=== PATIENT | female | born 1955 | race Two or more races ===

== ENCOUNTER 2018-02-18 19:25 | Observation (INO) | payer OTHER ==
--- NOTE | 2018-02-18 19:53 | PDOC ---
Rapid Medical Evaluation Time Seen by Provider: 02/18/18 19:44
--- NOTE | 2018-02-18 19:56 | PDOC ---
Rapid Medical Evaluation Chief Complaint: CVA/TIA Time Seen by Provider: 02/18/18 19:44 Medical Evaluation: Allergies Allergy/AdvReac Type Severity Reaction Status Date / Time No Known Allergies Allergy Verified 02/18/18 19:47 Vital Signs Temp Pulse Resp BP Pulse Ox 98.1 F 66 20 143/70 100 02/18/18 19:47 02/18/18 19:47 02/18/18 19:47 02/18/18 19:47 02/18/18 19:47 02/18/18 19:55 I have performed a brief in-person evaluation of this patient. The patient presents with a chief complaint of: acute onset this afternoon at lunch ~ 13:00 of dizziness/ and numbness to tongue/ lips and fingers that has persisted since . States does not feel well. No Hx CVA/ , fevers, cough, CP. Pertinent physical exam findings: pale but alert with no obv neuro changes. I have ordered the following: CThead. The patient will proceed to the ED for further evaluation. 02/18/18 19:57
--- NOTE | 2018-02-18 20:19 | PDOC ---
History of Present Illness - History of Present Illness Initial Comments: 02/18/18 20:19 Ms. Jordan is a 62 yo female w/ pmh of Asthma and pre-DM who presents for evaluation of sudden onset numbness to her hands, tongue and lower lips starting at 1pm today. Patient reports she had concurrent dizziness with this and that her vision became blurry. This all lasted for about an hour before the vision and blurriness resolved. She now feels only the lip and hand tingling. Patient reports she also has concurrent headache that she describes as being in the front and back of her head. Patient has no other complaints at this time. The patient denies chest pain and shortness of breath. Denies fever, chills, nausea, vomit, diarrhea and constipation. Denies dysuria, frequency, urgency and hematuria. Allergies: NKDA <Everardo Rodriguez - Last Filed: 02/18/18 21:45> <Slime Miller - Last Filed: 02/18/18 22:34> - General Chief Complaint: CVA/TIA Stated Complaint: TOOTHACHE Time Seen by Provider: 02/18/18 19:44 Past History - Past Medical History Asthma: Yes Cancer: No Cardiac Disorders: No CVA: No COPD: No CHF: No DVT: No Diabetes: Yes ("Pre diabetes") - Surgical History Cardiac Surgery: No Cholecystectomy: No Gastric Stapling: No GI Surgery: No Lung Surgery: No - Suicide/Smoking/Psychosocial Hx Smoking History: Never smoked Information on smoking cessation initiated: No Hx Alcohol Use: No Drug/Substance Use Hx: No <Everardo Rodriguez - Last Filed: 02/18/18 21:45> <Slime Miller - Last Filed: 02/18/18 22:34> - Past Medical History Allergies/Adverse Reactions: Allergies Allergy/AdvReac Type Severity Reaction Status Date / Time No Known Allergies Allergy Verified 02/18/18 19:47 Review of Systems - Review of Systems Comments:: 02/18/18 20:40 GENERAL/CONSTITUTIONAL: No fever or chills. No weakness. HEAD, EYES, EARS, NOSE AND THROAT: +Earlier blurry vision as described. No ear pain or discharge. No sore throat. CARDIOVASCULAR: No chest pain or shortness of breath RESPIRATORY: No cough, wheezing, or hemoptysis. GASTROINTESTINAL: No nausea, vomiting, diarrhea or constipation. GENITOURINARY: No dysuria, frequency, or change in urination. MUSCULOSKELETAL: No joint or muscle swelling or pain. No neck or back pain. SKIN: No rash NEUROLOGIC: +Neurological symptoms w/ headache as described. Dizziness and blurry vision resolved. Lip and tongue tingling remains. ENDOCRINE: No increased thirst. No abnormal weight change HEMATOLOGIC/LYMPHATIC: No anemia, easy bleeding, or history of blood clots. ALLERGIC/IMMUNOLOGIC: No hives or skin allergy. <Everardo Rodriguez - Last Filed: 02/18/18 21:45> *Physical Exam - Vital Signs Last Vital Signs Temp Pulse Resp BP Pulse Ox 98.1 F 66 20 143/70 100 02/18/18 19:47 02/18/18 19:47 02/18/18 19:47 02/18/18 19:47 02/18/18 19:47 - Physical Exam Comments: 02/18/18 20:41 GENERAL: Awake, alert, and fully oriented, in no acute distress HEAD: No signs of trauma, normocephalic, atraumatic EYES: PERRLA, EOMI, sclera anicteric, conjunctiva clear ENT: Auricles normal inspection, hearing grossly normal, nares patent, oropharynx clear without exudates. Moist mucosa NECK: Normal ROM, supple, no lymphadenopathy, JVD, or masses LUNGS: No distress, speaks full sentences, clear to auscultation bilaterally HEART: Regular rate and rhythm, normal S1 and S2, no murmurs, rubs or gallops, peripheral pulses normal and equal bilaterally. ABDOMEN: Soft, nontender, normoactive bowel sounds. No guarding, no rebound. No masses EXTREMITIES: Normal inspection, Normal range of motion, no edema. No clubbing or cyanosis. NEUROLOGICAL: Cranial nerves II through XII grossly intact. Normal speech, normal gait, no focal sensorimotor deficits SKIN: Warm, Dry, normal turgor, no rashes or lesions noted. <Everardo Rodriguez - Last Filed: 02/18/18 21:45> - Vital Signs Last Vital Signs Temp Pulse Resp BP Pulse Ox 98.1 F 66 20 143/70 100 02/18/18 19:47 02/18/18 19:47 02/18/18 19:47 02/18/18 19:47 02/18/18 19:47 <Slime Miller - Last Filed: 02/18/18 22:34> NIH Stroke Scale - Last Known Well Date/Time & Onset Date Last Known Well: 02/18/18 Time Last Known Well: 13:00 - Initial Evaluation Level of consciousness: Alert Ask patient the month and their age: Answers both correctly Ask patient to open & close eyes; make fist and let go: Obeys both correctly Best gaze (horizontal eye movement): Normal Visual field testing: No visual field loss Facial paresis (Show teeth/raise eyebrows/close eyes tight): Normal symmetrical movement Motor Function: Left Arm: Normal Motor Function: Right Arm: Normal (extends arm 90 (or 45) degrees for 10 seconds without drift Motor Function: Left Leg: Normal (extends leg 30 degrees for 5 seconds without drift) Motor Function: Right Leg: Normal (extends leg 30 degrees for 5 seconds without drift) Limb Ataxia: No ataxia Sensory(Use pinprick test arms,legs,trunk,face/side to side): Mild to moderate decrease in sensation Best language (Describe picture, name items, read sentences): No Aphasia Dysarthria (read several words): Normal articulation Extinction and Inattention: No abnormality - Total Score NIH Stroke Scale Score: 1 <Everardo Rodriguez - Last Filed: 02/18/18 21:45> tPA Exclusion checklist 3-4.5h - Time Elapsed Date last known well: 02/18/18 Time last known well: 13:00 Elaspsed time: Day(s) and 8 Hour(s) and 45 Minutes - Thrombolytic Therapy Candidate Is patient eligible for thrombolytic therapy: No - Exclusion Criteria 3-4.5 hr SBP greater than 185 or DBP greater than 110mmHg despite tx: No Recent IC/spinal surgery,head trauma or stroke<3mos.: No Hx IC hemorrhage, IC neoplasm, AV malformation or aneurysm: No Active internal bleeding: No Blding diathesis(low plt ct, inc PTT,INR>1.7 or use of NOAC): No Symptoms suggest subarachnoid hemorrhage: No CT demonstrates multilobar infarct(>1/3 cerebral hemiphere): No Arterial puncture at noncompressible site in previous 7 days: No Blood glucose concentration less than 50mg/dL (2.7mmol/L): No - Relative Exclusion Criteria 3-4.5 hr Life expectancy <1 yr or severe co-morbid illness: No : No Patient/family refused: No Rapid improvement: No Stroke severity too mild: Yes Recent acute VA (w/in previous 3 months): No Seizure at onset with postictal residual neuro impairments: No Major surgery or serious trauma w/in previous 14 days: No Recent GI or hemorrhage (w/in previous 21 days): No - Add'l Relative Exclusion 3-4.5 hr Age > 80: No Hx of both diabetes AND prior ischemic stroke: No Taking an oral anticoagulant regardless of INR: No NIHSS >25: No - Ineligibility reason(s) Reasons No tPA given: Outside of window - delayed arrival <Everardo Rodriguez - Last Filed: 02/18/18 21:45> Critical Care Time/[facility] Note - Medical Decision Making Note: 02/18/18 21:01 Ms. Jordan is a 62 yo female w/ [facility] as described who presents for evaluation of symptoms concerning for CVA event. Patient worked up accordingly with labs as below, Head CT, CXR, EKG. Patient NIHSS 1. Discussed patient w/ Dr. Zimmerman ( Neurology) - given low severity, NIHSS 1, and delayed presentation will withhold TPA; will admit patient for further neurological workup. 02/18/18 21:43 Patient resting comfortably. Labs grossly wnl as below. Admitting patient to hospitalist. Laboratory Results - last 24 hr 02/18/18 02/18/18 02/18/18 20:40 20:40 20:40 WBC 6.0 RBC 4.60 Hgb 13.8 Hct 41.0 MCV 89.1 MCH 30.0 MCHC 33.6 RDW 14.1 Plt Count 205 MPV 7.2 L Absolute Neuts (auto) 3.9 Neutrophils % 63.8 Lymphocytes % 30.2 Monocytes % 4.9 Eosinophils % 0.6 Basophils % 0.5 Nucleated RBC % 0 PT with INR 11.80 INR 1.00 PTT (Actin FS) Sodium 136 Potassium 4.4 Chloride 103 Carbon Dioxide 24 Anion Gap 9 BUN 19 H Creatinine 0.7 Creat Clearance w eGFR > 60 Random Glucose 121 H Calcium 9.1 Total Bilirubin 0.5 AST 26 ALT 64 H Alkaline Phosphatase 111 Creatine Kinase 206 H Creatine Kinase Index 0.7 CK-MB (CK-2) 1.6 Troponin I < 0.02 Total Protein 8.0 Albumin 4.3 Triglycerides 153 H Cholesterol 183 Total LDL Cholesterol 113 H HDL Cholesterol 44 Urine Color Urine Appearance Urine pH Ur Specific [place] Urine Protein Urine Glucose (UA) Urine Ketones Urine Blood Urine Nitrite Urine Bilirubin Urine Urobilinogen Ur Leukocyte Esterase 02/18/18 02/18/18 20:40 20:59 WBC RBC Hgb Hct MCV MCH MCHC RDW Plt Count MPV Absolute Neuts (auto) Neutrophils % Lymphocytes % Monocytes % Eosinophils % Basophils % Nucleated RBC % PT with INR INR PTT (Actin FS) 26.5 Sodium Potassium Chloride Carbon Dioxide Anion Gap BUN Creatinine Creat Clearance w eGFR Random Glucose Calcium Total Bilirubin AST ALT Alkaline Phosphatase Creatine Kinase Creatine Kinase Index CK-MB (CK-2) Troponin I Total Protein Albumin Triglycerides Cholesterol Total LDL Cholesterol HDL Cholesterol Urine Color Straw Urine Appearance Clear Urine pH 7.0 Ur Specific [place] 1.004 L Urine Protein Negative Urine Glucose (UA) Negative Urine Ketones Negative Urine Blood 1+ H Urine Nitrite Negative Urine Bilirubin Negative Urine Urobilinogen Negative Ur Leukocyte Esterase Negative <Everardo Rodriguez - Last Filed: 02/18/18 21:45> *DC/Admit/Observation/Transfer - Discharge Dispostion Decision to Admit order: Yes <Everardo Rodriguez - Last Filed: 02/18/18 21:45> - Discharge Dispostion Decision to Admit order: Yes Decision to Admit order Date/Time: 02/18/18 22:33 02/18/18 22:33 <Slime Miller - Last Filed: 02/18/18 22:34> Diagnosis at time of Disposition: Facial paresthesia - Discharge Dispostion Condition at time of disposition: Fair - Referrals Referrals: Shanae Bustamante MD [Primary Care Provider] - - Patient Instructions - Post Discharge Activity
[2018-02-18 21:00] LABS: BASO % 0.5 % (0-2.0); EOS % 0.6 % (0-4.5); HEMOGLOBIN 13.8 GM/dL (10.7-15.3); LYMPH % 30.2 % (8-40); MCHC 33.6 g/dl (32.0-36.0); MEAN CELL VOLUME 89.1 fl (80-96); MEAN PLT VOLUME 7.2 fl (7.5-11.1); MONO % 4.9 % (3.8-10.2); NEUT % 63.8 % (42.8-82.8); PLATELET COUNT 205 K/MM3 (134-434); RDW 14.1 % (11.6-15.6)
[2018-02-18] MEDS ORDERED: ASPIRIN 81 MG CHEWABLE TABLETS PO ONE (21:00)
[2018-02-18 21:06] LABS: PROTHROMBIN TIME (PATIENT) 11.8 SEC (9.7-13.0)
[2018-02-18 21:18] LABS: ALBUMIN 4.3 g/dl (3.4-5.0); ALK PHOS 111 U/L (45-117); ANION GAP 9 MMOL/L (8-16); BILIRUBIN,TOTAL 0.5 mg/dL (0.2-1); BLOOD UREA NITROGEN 19 mg/dL (7-18); CALCIUM 9.1 mg/dL (8.5-10.1); CHLORIDE 103 mmol/L (98-107); CHOLESTEROL 183 mg/dL (50-200); CO2 24 mmol/L (21-32); CREATININE 0.7 mg/dL (0.55-1.3); GLUCOSE,RANDOM 121 mg/dL (74-106); HDL CHOLESTEROL 44 mg/dL (40-60); POTASSIUM 4.4 mmol/L (3.5-5.1); SGOT/AST 26 U/L (15-37); SGPT/ALT 64 U/L (13-61); SODIUM 136 mmol/L (136-145); TRIGLYCERIDES 153 mg/dL (0-150)
[2018-02-18 21:31] LABS: URINE APPEARANCE CLEAR; URINE BILIRUBIN NEGATIVE (<2.0 mg/dL); URINE COLOR STRAW; URINE GLUCOSE (UA) NEGATIVE (NEGATIVE); URINE KETONE NEGATIVE (NEGATIVE); URINE LEUK ESTERASE NEGATIVE (NEGATIVE); URINE NITRITE NEGATIVE (NEGATIVE); URINE PROTEIN NEGATIVE (NEGATIVE); URINE UROBILINOGEN NEGATIVE mg/dL (0.2-1.0)
[2018-02-18] MEDS ORDERED: ASPIRIN 81 MG CHEWABLE TABLETS ONE (21:46)
[2018-02-18] MEDS: SODIUM CHLORIDE 1,000 ML IV SCH (21:53)
--- NOTE | 2018-02-18 22:29 | PDOC ---
Attending Attestation - Resident Resident Name: Everardo Rodriguez - HPI HPI: 02/18/18 22:24 The patient is a 62 year old female with a significant past medical history of Asthma and pre-DM who presents for evaluation of sudden onset numbness to her tongue and lower lips starting at 1pm today. She reports associated dizziness and blurred vision which lasted about an hour before resolving. She denies the dizziness and visual changes now. She states she feels only the lip and bilateral hands tingling. She also reports a diffuse headache at this time. The patient denies chest pain and shortness of breath. Denies fever, chills, nausea, vomit, diarrhea and constipation. Denies dysuria, frequency, urgency and hematuria. Allergies: NKDA PCP: Dr. Salvatore Issa - Physicial Exam PE: 02/18/18 22:25 NAD, well appearing, PERRL, EOMI, MMM, nl conjunctiva, anicteric; neck supple. lungs clear, RRR, abdomen soft nontender. SARABIA x4, CN II-XII grossly intact. 5/5 strength in all extrem, SILT. No peripheral edema. normal color for ethnicity, WWP. - Medical Decision Making 02/18/18 22:25 Vital signs reviewed, wnl. Prior notes reviewed, including admissions, discharges and consultations. laboratory results and imaging reviewed, basic labs and lytes wnl, notable for elevated LDL and mildly abnormal lipid panel. UA_wnl, no infection, glc or protein. small blood, unclear CXR_clear, no acute pathology Cardiac panel_trop neg, reassuring. EKG normal sinus rhythm, no interval abnormalities, narrow QRS, ST and T wave segments and morphology normal. ED course: no acute events, remained stable and well appearing. Out of window for tpa, last normal/time of onset at 1pm. NIHSS 1 for the mild paresthesia; otherwise no focal neuro deficits. CT head grossly normal will warrant inpatient MRI/MRA, formal echo Dr. Zimmerman was called at 20:58 and the patients case was discussed with Dr. Rodriguez Dispo: Admit for stroke workup, +facial and tongue paresthesias. Discussed results and management plan with pt and family member at bedside, agree with impression and plan 02/18/18 22:29 Heart Score/ECG Review - ECG Impressions Normal ECG: Yes Comment:: 10/31/18 22:28 EKG normal sinus rhythm, no interval abnormalities, narrow QRS, ST and T wave segments and morphology normal. NIH Stroke Scale - Last Known Well Date/Time & Onset Date Last Known Well: 02/18/18 Time Last Known Well: 13:00 - Initial Evaluation Level of consciousness: Alert Ask patient the month and their age: Answers both correctly Ask patient to open & close eyes; make fist and let go: Obeys both correctly Best gaze (horizontal eye movement): Normal Visual field testing: No visual field loss Facial paresis (Show teeth/raise eyebrows/close eyes tight): Normal symmetrical movement Motor Function: Left Arm: Normal Motor Function: Right Arm: Normal (extends arm 90 (or 45) degrees for 10 seconds without drift Motor Function: Left Leg: Normal (extends leg 30 degrees for 5 seconds without drift) Motor Function: Right Leg: Normal (extends leg 30 degrees for 5 seconds without drift) Limb Ataxia: No ataxia Sensory(Use pinprick test arms,legs,trunk,face/side to side): Mild to moderate decrease in sensation Best language (Describe picture, name items, read sentences): No Aphasia Dysarthria (read several words): Normal articulation Extinction and Inattention: No abnormality - Total Score NIH Stroke Scale Score: 1
[2018-02-18] MEDS ORDERED: ACETAMINOPHEN 325 MG TABLET (FP) PO PRN (23:38)
--- NOTE | 2018-02-18 23:39 | HP ---
CHIEF COMPLAINT: numbness, tingling around lower lip and finger tips PCP: HISTORY OF PRESENT ILLNESS: Patient is a 62 y/o female with a history of asthma and pre diabetes who presents for numbness and tingling at lower lip, tounge, and fingertips. She also reports feeling dizzy and with a headache. She reports this as the first time she has ever had these feelings and the began at about 1 pm today. She reports they resolved at around 4 pm today. She described the feeling that the room was spinning. She did not take any medication. Patient has no history of stroke and no family history of stroke. Patients reports she also has low back, cva tenderness. She reports she has pain upon initiation of urination without any discharge or blood. She was diagnosed with a UTI by [facility] and took her first does of nitrofurintoin yesterday. Patient also complains of bilateral lower extremity burning and pain through the day. ED was concerned for a stroke and had a head CT done. NIHS scale 1. Patient currently reports her symptoms have resolved and she only complains of the low back pain. ER course was notable for: (1) (2) (3) Recent Travel: PAST MEDICAL HISTORY: asthma, pre diabetes PAST SURGICAL HISTORY: Social History: Smoking: denies Alcohol: denies Drugs: Family History: Allergies No Known Allergies Allergy (Verified 02/18/18 19:47) HOME MEDICATIONS: Home Medications Medication Instructions Recorded Acetaminophen [Mapap] 1,000 mg PO BID 02/18/18 Montelukast Na [Singulair -] 10 mg PO HS 02/18/18 Nitrofurantoin Macrocrystal 100 mg PO BID 02/18/18 [Nitrofurantoin] REVIEW OF SYSTEMS CONSTITUTIONAL: Absent: fever, chills, diaphoresis, generalized weakness, malaise, loss of appetite, weight change HEENT: Absent: rhinorrhea, nasal congestion, throat pain, throat swelling, difficulty swallowing, mouth swelling, ear pain, eye pain, visual changes CARDIOVASCULAR: Absent: chest pain, syncope, palpitations, irregular heart rate, lightheadedness , peripheral edema RESPIRATORY: Absent: cough, shortness of breath, dyspnea with exertion, orthopnea, wheezing, stridor, hemoptysis GASTROINTESTINAL: Absent: abdominal pain, abdominal distension, nausea, vomiting, diarrhea, constipation, melena, hematochezia GENITOURINARY: Absent: dysuria, frequency, urgency, hesitancy, hematuria, flank pain, genital pain MUSCULOSKELETAL: back pain Absent: myalgia, arthralgia, joint swelling, neck pain SKIN: Absent: rash, itching, pallor HEMATOLOGIC/IMMUNOLOGIC: Absent: easy bleeding, easy bruising, lymphadenopathy, frequent infections ENDOCRINE: Absent: unexplained weight gain, unexplained weight loss, heat intolerance, cold intolerance NEUROLOGIC: Absent: headache, focal weakness or paresthesias, dizziness, unsteady gait, seizure, mental status changes, bladder or bowel incontinence PSYCHIATRIC: Absent: anxiety, depression, suicidal or homicidal ideation, hallucinations. PHYSICAL EXAMINATION Vital Signs - 24 hr 02/18/18 02/18/18 19:47 23:34 Temperature 98.1 F Pulse Rate 66 Pulse Rate [ 55 L Right] Respiratory 20 16 Rate Blood Pressure 143/70 Blood Pressure 102/72 [Right Arm] O2 Sat by Pulse 100 98 Oximetry (%) GENERAL: Awake, alert, and fully oriented, in no acute distress. HEAD: Normal with no signs of trauma. EYES: Pupils equal, round and reactive to light, extraocular movements intact, sclera anicteric, conjunctiva clear. No lid lag. EARS, NOSE, THROAT: Moist mucous membranes. NECK: Normal range of motion, supple without lymphadenopathy, JVD, or masses. LUNGS: Breath sounds equal, clear to auscultation bilaterally. No wheezes, and no crackles. No accessory muscle use. HEART: Regular rate and rhythm, normal S1 and S2 without murmur, rub or gallop. ABDOMEN: tenderness to RUQ palpation MUSCULOSKELETAL: CVA tenderness bilaterally, 5/5 strength RUE and LLE LOWER EXTREMITIES: 2+ pulses, warm, well-perfused. No calf tenderness. No peripheral edema. decreased sensations bilateral feet NEUROLOGICAL: Cranial nerves II-XII intact. Normal speech. Normal gait. Negative [place] exam PSYCHIATRIC: Cooperative. Good eye contact. Appropriate mood and affect. SKIN: Warm, dry, normal turgor, no rashes or lesions noted, normal capillary refill. Laboratory Results - last 24 hr CBC, BMP 02/18/18 20:40 02/18/18 20:40 ASSESSMENT/PLAN: Patient is a 62 y/o female with a history of asthma and pre diabetes who presents for numbness and tingling at lower lip, tounge, and fingertips. #tingling and dizziness, r/o TIA - CT negative for any acute pathology - ED discussed with Dr. Zimmerman - f/u Brain MRI in morning, discuss necessity of completing imaging for low suspicion TIA - f/u vitamin B12 - f/u echo - carotid doppler: no evidence of acute stenosis - continue aspirin 81 mg daily - monitor on tele obs - monitor neuro checks, and serial neuro exams #UTI, possibly pyelonephritis - ceftriaxone 1 gm daily - Ucx: e. coli - patient took two doses of nitrofuintoin previously #CVA tenderness, possible stones, r/o Renal artery stenosis - Renal ultrasound: right kidney has atrophy, no hydronephrosis bilaterally - f/u renal artery doppler - patient follows up with Dr. Kayleigh Grimaldo #diabetic nephropathy - Gabapentin 300 BID - f/u A1C - SS as needed #hyperlipidemia - atorvastatin 40 mg daily - cholesterol 183, triglycerides : 183 Visit type - Emergency Visit Emergency Visit: Yes ED Registration Date: 02/18/18 Care time: The patient presented to the Emergency Department on the above date and was hospitalized for further evaluation of their emergent condition. - New Patient This patient is new to me today: Yes Date on this admission: 02/19/18 - Critical Care Critical Care patient: No
[2018-02-19] MEDS ORDERED: SODIUM CHLORIDE 1,000 ML IV SCH (00:15)
--- NOTE | 2018-02-19 00:42 | PN ---
Teaching Attending Note Name of Resident: Sherlyn Abernathy ATTENDING PHYSICIAN STATEMENT I saw and evaluated the patient. I reviewed the resident's note and discussed the case with the resident. I agree with the resident's findings and plan as documented. SUBJECTIVE: Seen and examined with resident; please refer to resident note for additional historical information. In summation, this pt. is a 62 y/o HF with a PMH significant for HTN, pre-DM, HLD, current UTI currently being treated with nitrofurantoin. She presents to the ER with multiple complaints. These are 1) numbness/tingling in her lower lip and b/l symmetric hands with b/l symmetric feet decreased sensation since 1PM 2) Burning sensation in b/l LE, 3) b/l ' kidney pain' R>L, 4) blurry vision. She was ruled out for CVA in the ER. Neurology was contacted by the ER. She is a patient of Dr. Morin and he suspected YASMINE and she had planned imaging next week for it. She has been compliant with the nitrofurantoin; RIYA <32 but technically sensitive and Ucx growing E. Coli. Afebrile, no WBC, hemodynamically stable, UA negative today ( and was +LE and nitrite yesterday). She is noted to be hyperglycemic. We will admit her to the medicine service for further workup. Notably she is not complaining of any neuro complaints when we assess her. 10 sys ROS done and negative aside from HPI PMH and PSH per chart FH asked and noncontributory Social hx denies EtOH and tobacco abuse OBJECTIVE: VSS, labs reviewed, imaging reviewed NAD, resting in bed, AAO RRR s1/2 no mgr Lungs CTAB with sym expansion No rashes or skin breakdown CN2-12 grossly intact, no FND. Ambulates 50+ feet without difficulty. Speech fluid without any dysarthria noted. Normal mood, appropriate behavior NT ND +BS; b/l pain to fist percussion R>L Diminished fine touch symmetric on the b/l plantar surface of feet extending over the ankles in stocking-glove distribution. ASSESSMENT AND PLAN: Mrs. Luna is a 62 y/o HF with a PMH as stated who is presenting to the medicine service with a CC of numbness in face/feet/hands, flank pain. She has suspected YASMINE. Neurology was contacted by ER for suspected CVA; Dr. Zimmermna (Neurology), given low severity with NIHSS 1 and delayed presentation will withhold TPA; will admit patient for further neurological workup.. Monitoring the patient on medicine service; she is free of any neurological complaints. 1) Suspected CVA -Her neuro symptoms do not fit one specific area of the brain. Neurology declined to give tPA which is more than reasonable. The distribution is the b/ l hands, b/l LE, lip, tongue. Sx have improved. Other explanations for the sx would include peripheral neuropathy 2/2 DM, B12 deficiency, etc. The burning pain in the b/l LE is very suspicious for neuropathy, especially given the stocking-glove distributrion -Neurology input appreciated. Will monitor the patient on tele. Will check MRI in the AM. Checking carotid dopplers and echocardiogram. PT/OT/ST. No neuro deficits evident now. Monitor with neuro checks and serial neuro exams on the floor. -Does have risk factors for CVA so will staff counselor regarding reducing those. 2) B/L Flank Pain -Ddx includes pyelonephritis, renal stones. Should note Dr. Victor was planning to obtain an u/s with doppler to r/o YASMINE on her as an outpatient. -Will go ahead and obtain YASMINE study with color doppler which would also show any hydronephrosis or stigmata of stones. Of course this is not the most sensitive test for renal stones so if strong suspicion persists post- examination can check high res CT -In terms of pyelo, she has no white count, no fever, HR and BP completely normal, negative UA today (only +nitrite/LE without epithelial cells, WBC, etc yesterday). She was on nitrofurantoin. Will change her to IV ceftriaxone as RIYA is much better with this and monitor for improvement. Monitor for sx improvement. 3) Stated prediabetes -Glucose 120s; low dose SSI when inpatient and check A1c -Workup for diabetic neuropathy and close followup with PCP 4) HLD -LDL 120s, TG 150s. -Atorva 40 QD, followup with PCP 5) Possible neuropathy -Given the odd distribution, etc. would be suspicious for neuropathy. Checking A1c, B12, TSH. -Start gabapentin empirically at low dose to see if any help -Given that the lip sx, etc. started at 1PM would be reasonable to consider if nitrofurantoin side effect 6) History of Asthma -No acute exacerbation -Monitor; continue home meds. Ensure on inhaled steroid at discharge 7) Acute Cystitis -Please see discussion in #2 -Changed nitro to ceftriaxone; Ecoli on UCx done prior with appropriate sensitivities to this drug. Full Code FENA -LR@75/hr -monitor/replace PRN -NPO until swallow eval then DM diet (DC fluids when eating) -As tolerated; consulted PT/OT due to #1 issue
[2018-02-19] MEDS ORDERED: ALBUTEROL SO4 0.083% IH SOL 2.5 MG/3 ML VIAL.NEB. NEB PRN (02:12)
[2018-02-19] MEDS ORDERED: GABAPENTIN 300 MG CAPSULE (FP) PO SCH ×2 (06:00→10:00)
[2018-02-19] MEDS: INSULIN SLIDING SCALE (NOVOLOG) 1 VIAL SQ SCH ×2 (06:04→11:57)
[2018-02-19 07:55] VITALS: BP 121/75; PULSE 82; TEMP 97.7; BMI 29.7
[2018-02-19] MEDS: SODIUM CHLORIDE 1,000 ML IV SCH (08:22)
[2018-02-19 08:51] LABS: HEMATOCRIT 40.8 % (32.4-45.2); HEMOGLOBIN 13.7 GM/dL (10.7-15.3); MCH 29.8 pg (25.7-33.7); MCHC 33.6 g/dl (32.0-36.0); MEAN CELL VOLUME 88.7 fl (80-96); MEAN PLT VOLUME 7.8 fl (7.5-11.1); PLATELET COUNT 192 K/MM3 (134-434); WHITE BLOOD COUNT 6.2 K/mm3 (4.0-10.0)
--- NOTE | 2018-02-19 09:02 | PN ---
Progress Note (short form) - Note Progress Note: CC Tingling of lower lip, tongue , finger tip, which is resolved HPI 62 year old female, hisotry of Prediabetes, Asthma. She has hsitory of tingling of lower lip, tongue and has initial ct head and it was normal. Her symptoms are resolved. She is not taking any aspirin or statin at home. Her blood pressure was normal, she do not have any weakness, dysarthria or diplopia. At admission her NIHSS was 1 and now zero PAST MEDICAL HISTORY: asthma, pre diabetes Social Hx, ROS, Family History reviewed in chart No Known Allergies Allergy (Verified 02/18/18 19:47) HOME MEDICATIONS: Home Medications Medication Instructions Recorded Acetaminophen [Mapap] 1,000 mg PO BID 02/18/18 Montelukast Na [Singulair -] 10 mg PO HS 02/18/18 Nitrofurantoin Macrocrystal 100 mg PO BID 02/18/18 [Nitrofurantoin] Neurological Examination Alert oriented x 3, speech is normal, able to repeat CN: EOMI, pupils reactive no face asymmetry Motor 5/5 all ext sensation is normal ct head is normal Assessment/Plan POSSIBLE TIA, Her ABCD score is low, risk factor is prediabetes. Plan: suggest to continue aspirin and statin and would review need for terminal manager as outpatient - stroke work up , carotid ultrasound is noraml, mri of brain is pending - she can be discharged once mri of brain is normal -I would see her outpatient Thanking You so much Noé Zimmerman MD
[2018-02-19 09:13] LABS: ALBUMIN 3.8 g/dl (3.4-5.0); ALK PHOS 91 U/L (45-117); ANION GAP 7 MMOL/L (8-16); BILIRUBIN,TOTAL 0.6 mg/dL (0.2-1); BLOOD UREA NITROGEN 13 mg/dL (7-18); CALCIUM 8.7 mg/dL (8.5-10.1); CHLORIDE 106 mmol/L (98-107); CO2 25 mmol/L (21-32); CREATININE 0.6 mg/dL (0.55-1.3); GLUCOSE,RANDOM 89 mg/dL (74-106); POTASSIUM 4.4 mmol/L (3.5-5.1); SGOT/AST 22 U/L (15-37); SGPT/ALT 54 U/L (13-61); SODIUM 138 mmol/L (136-145); TOT PROT 7.2 g/dl (6.4-8.2)
[2018-02-19] MEDS ORDERED: cefTRIAXone SODIUM 1 GM VIAL ONE (09:27)
[2018-02-19] MEDS ORDERED: DEXTROSE 5%-WATER - 50 ML IVPB ONE (09:28)
[2018-02-19] MEDS ORDERED: ASPIRIN 81 MG CHEWABLE TABLETS PO SCH (10:00)
[2018-02-19] MEDS ORDERED: CEFTRIAXONE 1 GM in DEXTROSE 5%-WATER - 50 ML IVPB SCH (10:00)
--- NOTE | 2018-02-19 13:17 | ECHO ---
Name: CASSY CAVAZOS Exam:Adult Echocardiogram Study Date: 02/19/2018 09:17 AM Age: 62 yrs Reason For Study: r/o tia Height: 66 in Weight: 145 lb BSA: 1.7 m2 MMode/2D Measurements & Calculations IVSd: 0.82 cm Ao root diam: 3.2 cm LVIDd: 5.2 cm LA dimension: 4.1 cm LVIDs: 3.1 cm ACS: 1.9 cm LVPWd: 0.88 cm IVSs: 1.1 cm LVPWs: 1.1 cm EDV(Teich): 127.1 ml ESV(Teich): 36.8 ml Doppler Measurements & Calculations MV E max clemente: 66.4 cm/sec Ao V2 max: 125.1 cm/sec MV A max clemente: 76.5 cm/sec Ao max P.3 mmHg MV E/A: 0.87 Ao V2 mean: 83.5 cm/sec Ao mean P.1 mmHg Ao V2 VTI: 28.5 cm TR max clemente: 208.4 cm/sec Med Peak E' Clemente: 7.0 cm/sec TR max P.4 mmHg Med E/e': 9.5 Lat Peak E' Clemente: 8.7 cm/sec Lat E/e': 7.7 Procedure A complete two-dimensional transthoracic echocardiogram was performed (2D, M-mode, Doppler and color flow Doppler). Left Ventricle The left ventricular size, thickness and function are normal. The left ventricular ejection fraction is normal. Ejection Fraction = 55-60%. No regional wall motion abnormalities noted. Right Ventricle The right ventricle is normal in size and function. Atria The left atrium is mildly dilated. Right atrial size is normal. Mitral Valve There is no mitral regurgitation noted. Tricuspid Valve There is trace tricuspid regurgitation. There was insufficient TR detected to calculate RV systolic p ressure. Aortic Valve No hemodynamically significant valvular aortic stenosis. No aortic regurgitation is present. Pulmonic Valve There is no pulmonic valvular regurgitation. Great Vessels The aortic root is normal size. Pericardium/Pleura There is no pericardial effusion. Interpretation Summary The left ventricular size, thickness and function are normal The right ventricle is normal in size and function. The left atrium is mildly dilated. There is trace tricuspid regurgitation. MD Jayson Bhatia 02/19/2018 01:16 PM
--- NOTE | 2018-02-19 14:30 | DS ---
Physical Exam: SUBJECTIVE: Patient seen and examined at bedside. states she is feeling much better- is not longer having any numbness/tingling in her lips/tongue / feet. she is feeling mcuh better besides having a slight headache- she denies any CP/ SOB/N/V fevers or chills. OBJECTIVE: Vital Signs Period Temp Pulse Resp BP Sys/Lopez Pulse Ox Last 24 Hr 97.7 F-98.1 F 55-82 16-20 102-143/70-75 96-100 PHYSICAL EXAM GENERAL: The patient is awake, alert, and fully oriented, in no acute distress. EYES:no scleral icterus NECK: no JVD< no lymphadenopathy LUNGS: CTA B/L; no rales, rhonchi or wheezing HEART: Regular rate and rhythm, S1, S2 without murmur, rub or gallop. ABDOMEN: Soft, nontender, nondistended, normoactive bowel sounds, no guarding, no rebound, no hepatosplenomegaly, no masses. EXTREMITIES: 2+ pulses, warm, well-perfused, no edema. NEUROLOGICAL: Cranial nerves II through XII grossly intact. Normal speech, gait not observed. PSYCH: Normal mood, normal affect. SKIN: Warm, dry, normal turgor, no rashes or lesions noted. LABS Laboratory Results - last 24 hr 02/18/18 02/18/18 02/18/18 20:40 20:40 20:40 WBC 6.0 RBC 4.60 Hgb 13.8 Hct 41.0 MCV 89.1 MCH 30.0 MCHC 33.6 RDW 14.1 Plt Count 205 MPV 7.2 L Absolute Neuts (auto) 3.9 Neutrophils % 63.8 Lymphocytes % 30.2 Monocytes % 4.9 Eosinophils % 0.6 Basophils % 0.5 Nucleated RBC % 0 PT with INR 11.80 INR 1.00 PTT (Actin FS) Sodium 136 Potassium 4.4 Chloride 103 Carbon Dioxide 24 Anion Gap 9 BUN 19 H Creatinine 0.7 Creat Clearance w eGFR > 60 POC Glucometer Random Glucose 121 H Hemoglobin A1c % Calcium 9.1 Total Bilirubin 0.5 AST 26 ALT 64 H Alkaline Phosphatase 111 Creatine Kinase 206 H Creatine Kinase Index 0.7 CK-MB (CK-2) 1.6 Troponin I < 0.02 Total Protein 8.0 Albumin 4.3 Triglycerides 153 H Cholesterol 183 Total LDL Cholesterol 113 H HDL Cholesterol 44 Vitamin B12 TSH Urine Color Urine Appearance Urine pH Ur Specific [place] Urine Protein Urine Glucose (UA) Urine Ketones Urine Blood Urine Nitrite Urine Bilirubin Urine Urobilinogen Ur Leukocyte Esterase Urine WBC (Auto) Urine RBC (Auto) 02/18/18 02/18/18 02/19/18 20:40 20:59 05:42 WBC RBC Hgb Hct MCV MCH MCHC RDW Plt Count MPV Absolute Neuts (auto) Neutrophils % Lymphocytes % Monocytes % Eosinophils % Basophils % Nucleated RBC % PT with INR INR PTT (Actin FS) 26.5 Sodium Potassium Chloride Carbon Dioxide Anion Gap BUN Creatinine Creat Clearance w eGFR POC Glucometer 115 Random Glucose Hemoglobin A1c % Calcium Total Bilirubin AST ALT Alkaline Phosphatase Creatine Kinase Creatine Kinase Index CK-MB (CK-2) Troponin I Total Protein Albumin Triglycerides Cholesterol Total LDL Cholesterol HDL Cholesterol Vitamin B12 TSH Urine Color Straw Urine Appearance Clear Urine pH 7.0 Ur Specific [place] 1.004 L Urine Protein Negative Urine Glucose (UA) Negative Urine Ketones Negative Urine Blood 1+ H Urine Nitrite Negative Urine Bilirubin Negative Urine Urobilinogen Negative Ur Leukocyte Esterase Negative Urine WBC (Auto) 1 Urine RBC (Auto) <1 02/19/18 02/19/18 02/19/18 07:40 07:40 07:40 WBC 6.2 RBC 4.60 Hgb 13.7 Hct 40.8 MCV 88.7 MCH 29.8 MCHC 33.6 RDW 14.0 Plt Count 192 MPV 7.8 Absolute Neuts (auto) Neutrophils % Lymphocytes % Monocytes % Eosinophils % Basophils % Nucleated RBC % PT with INR INR PTT (Actin FS) Sodium 138 Potassium 4.4 Chloride 106 Carbon Dioxide 25 Anion Gap 7 L BUN 13 Creatinine 0.6 Creat Clearance w eGFR > 60 POC Glucometer Random Glucose 89 Hemoglobin A1c % 6.8 H Calcium 8.7 Total Bilirubin 0.6 AST 22 ALT 54 Alkaline Phosphatase 91 Creatine Kinase Creatine Kinase Index CK-MB (CK-2) Troponin I Total Protein 7.2 Albumin 3.8 Triglycerides Cholesterol Total LDL Cholesterol HDL Cholesterol Vitamin B12 781 TSH 2.56 Urine Color Urine Appearance Urine pH Ur Specific [place] Urine Protein Urine Glucose (UA) Urine Ketones Urine Blood Urine Nitrite Urine Bilirubin Urine Urobilinogen Ur Leukocyte Esterase Urine WBC (Auto) Urine RBC (Auto) 02/19/18 11:44 WBC RBC Hgb Hct MCV MCH MCHC RDW Plt Count MPV Absolute Neuts (auto) Neutrophils % Lymphocytes % Monocytes % Eosinophils % Basophils % Nucleated RBC % PT with INR INR PTT (Actin FS) Sodium Potassium Chloride Carbon Dioxide Anion Gap BUN Creatinine Creat Clearance w eGFR POC Glucometer 160 Random Glucose Hemoglobin A1c % Calcium Total Bilirubin AST ALT Alkaline Phosphatase Creatine Kinase Creatine Kinase Index CK-MB (CK-2) Troponin I Total Protein Albumin Triglycerides Cholesterol Total LDL Cholesterol HDL Cholesterol Vitamin B12 TSH Urine Color Urine Appearance Urine pH Ur Specific [place] Urine Protein Urine Glucose (UA) Urine Ketones Urine Blood Urine Nitrite Urine Bilirubin Urine Urobilinogen Ur Leukocyte Esterase Urine WBC (Auto) Urine RBC (Auto) Imaging: Head CT: no acute intracranial pathology Brain MRI w/o contrast: microvascular changes consistent with chronic ischemic changes, no acute intracranial pathology. Carotid artery dopplers: no blockage of flow renal ultrasound: right atrophic kidney; no hydronephrosis, large post void residual volume HOSPITAL COURSE: Date of Admission:02/18/18 62 y/o female with PMH of asthma and pre-diabetes came to the ER with complaints of numbness.tingling in her lips, tongue and feet for 3 hours. This was the first time this had ever happened to her. She states that by the time she got the hospital her symptoms had subsided. She also had an associatd headache and dizziness at the time. SHe had an NIHSS of [address] was done which was negative for any acute intrcranial patholgoy. Dr. Bronson the neurologsit was consulted who said she was not a candidate for TPA. All of her labs were within normal limits. Carotid dopplers were done which showed no blockage of flow. Brain MRI was also done showing no acute intracranial pathology. She has a questionable history of renal artery stenosis, for which she follows up with a e commerce strategist, so a renal ultrasound was done, also she had been comapling of B/l CVA tenderness and was on day 2 of macrobid. Though a U.a/ was done which was negative. once patient was stable enough for discharge she was instructed to continue taking keflex twice a 2 for 2 more days to treat the possible UTI. in addition she was also started on a statin as LDL and total cholesterol were eleavted. We also started patient on gabapentin and told her to follow up with her pcp in regard to her pre-diabetes. She was told to folow up with the neurologist in 1-2 weeks. Date of Discharge: 02/19/18 Minutes to complete discharge: 39 Discharge Summary Reason For Visit: FACIAL PARESTHESIA,CEREBROVASCULAR ACCIDENT(CVA) Current Active Problems Facial paresthesia (Acute) UTI (urinary tract infection) (Acute) Condition: Improved - Instructions Diet, Activity, Other Instructions: You came to the emergency room with complaints of numbness/tingling in your lips , tongue, feet with associated headaches. We did a cat scan of your head which shows no acute issues. In addition, we did an ultrasound of the arteries in your neck to look for any blockage of blood flow - there was complete flow of blood no blockage. We also got an MRI of your brain for further evaluation, the results were normal, it did not show any acute changes. We checked your cholesterol levels which were elevated so we started you on a cholesterol medicine, called atorvastatin 40mg. In addition, for your numbness and tingling you were started on a medicine called Gabapentin, which we want you to continue taking daily. We checked your 3 month sugar level called your HBA1C and that was elevated at 6.8%, putting you in the category of diabetes. You should follow up with your primary care doctor regarding this and if you need to be started on medications. In regards to your painful urination, we switched you to an antibiotic called Ceftriaxone and took and ultrasound of your kidneys which did not show any evidence of infection . Please continue to follow up with Dr. Kayleigh Ndiaye, the e commerce strategist. Please resume all home medication in addition please take: -atorvastatin 40 daily for cholesterol -gabapentin 100 daily for neuropathy -keflex 500 twice a day for 2 more days Referrals: -we advise you to follow up with your primary care physician within one week -we advise you to follow up with neurologist, Dr. Flynn in one to two weeks *if you begin to experience chest pain, shortness of breath, nausea, vomiting fevers or chills please return to the emergency room immediately Referrals: Noé Zimmerman MD [Staff Physician] - 2 Weeks Shanae Bustamante MD [Primary Care Provider] - 1 Week Disposition: HOME - Home Medications Comprehensive Discharge Medication List: Ambulatory Orders Acetaminophen [Mapap] 1,000 mg PO BID 02/18/18 Montelukast Na [Singulair -] 10 mg PO HS 02/18/18 Aspirin [ASA -] 81 mg PO DAILY 30 Days #30 tab.chew 02/19/18 Atorvastatin Ca [Lipitor] 40 mg PO HS 30 Days #30 tablet 02/19/18 Cephalexin [Keflex] 500 mg PO BID 2 Days #4 capsule 02/19/18 Gabapentin 100 mg PO DAILY 30 Days #30 capsule 02/19/18 Problem List - Problems (1) Facial paresthesia Code(s): R20.9 - UNSPECIFIED DISTURBANCES OF SKIN SENSATION (2) UTI (urinary tract infection) Code(s): N39.0 - URINARY TRACT INFECTION, SITE NOT SPECIFIED This patient is new to me today: Yes Date on this admission: 02/19/18 Emergency Visit: Yes ED Registration Date: 02/18/18 Care time: The patient presented to the Emergency Department on the above date and was hospitalized for further evaluation of their emergent condition. Critical Care patient: No - Discharge Referral Referred to [facility] Med P.C.: No
--- NOTE | 2018-02-19 14:49 | EKG ---
Test Reason : Blood Pressure : / mmHG Vent. Rate : 057 BPM Atrial Rate : 057 BPM P-R Int : 136 ms QRS Dur : 094 ms QT Int : 454 ms P-R-T Axes : 041 016 041 degrees QTc Int : 441 ms POOR DATA QUALITY, INTERPRETATION MAY BE ADVERSELY AFFECTED SINUS BRADYCARDIA INCOMPLETE RIGHT BUNDLE BRANCH BLOCK BORDERLINE ECG NO PREVIOUS ECGS AVAILABLE Confirmed by ELA HOPE MD ([id number]) on 02/19/2018 2:48:52 PM Referred By: Confirmed By:ELA HOPE MD
--- NOTE | 2018-02-19 15:34 | PN ---
Teaching Attending Note Name of Resident: Melina Vega ATTENDING PHYSICIAN STATEMENT I saw and evaluated the patient. I reviewed the resident's note and discussed the case with the resident. I agree with the resident's findings and plan as documented. SUBJECTIVE:states symptoms have completely resolved. denies CP, SOB, fever, chills, N/V/C/D, dizzyness, blurred vision, weakness, OBJECTIVE: Last Vital Signs Temp Pulse Resp BP Pulse Ox 97.7 F 82 20 121/75 96 02/19/18 07:46 02/19/18 07:46 02/19/18 07:46 02/19/18 07:46 02/19/18 10:00 general NAD CV S1 S2 RRR no murmur/rub/gallop lungs CTA B/L no wheezing/rales/rhonchi Neuro CN II-XII grossly intact, strength and sensation grossly intact, no pronator drift. normal gait ASSESSMENT AND PLAN: 2 y/o HF with a PMH significant for HTN, pre-DM, HLD, current UTI currently being treated with nitrofurantoin presented with lip and B/L Hand and feet numbness and kidney pain 1. Numbness B/L hands/feet- now resolved. Code stroke was initiated in the Er. NIHSS 1. full workup has been negative. MRI/Carotid/doppler. symptoms more suggestive of either side effect of macrbod which can cause numbness vs peripheral neuropathy due to DM due to stocking distribution. held abx. started gabapentin. evalated by neuro. no further workup at this time. can f/u with neuro as outpatient if symptoms remit 2. kidney pain- renal u/s done showing no hydro or signs of pyelo. 3. UTI- switch to ceftriaxone. will d/c on keflex to complete course 4. DM- A1c 6.8. discussed dietary changes and exercise. will need to have A1c repeated i 3 months. if remains elevated will need to initiate medictions. counselled on risks assoc iwth prison uncontrolled DM 5. HTN- controlled 6. D/c home
[2018-02-19] MEDS ORDERED: ATORVASTATIN CA 40 MG TABLET (FP) PO SCH (22:00)
[2018-02-19] MEDS ORDERED: MONTELUKAST NA 10 MG TABLET PO SCH (22:00)
== END 2018-02-19 14:43 | disposition home or self-care (01) ==
LOC: JER 19:25 → JERBED 21:46 → J4W 02-19 05:28
PROVIDERS: ADMIT Internal Medicine; ATTEND Internal Medicine
PROC: 3E03329 Introduction of Other Anti-infective into Peripheral Vein, Percutaneous Approach (ICD-10-PCS; principal; 2018-02-18)
PROC: 3E0337Z Introduction of Electrolytic and Water Balance Substance into Peripheral Vein, Percutaneous Approach (ICD-10-PCS; 2018-02-18)
PROC: 3E013VG Introduction of Insulin into Subcutaneous Tissue, Percutaneous Approach (ICD-10-PCS; 2018-02-18)
DX: R20.2 Paresthesia of skin (principal); R42 Dizziness and giddiness; N39.0 Urinary tract infection, site not specified; E78.5 Hyperlipidemia, unspecified; R73.03 Prediabetes; Z79.82 Long term (current) use of aspirin
CPT/HCPCS: 36415; 70450-TC; 70551-TC; 71045-TC-FY; 76775-TC; 76856-TC; 80053; 81003; 81015; 82465; 82550; 82553; 82607; 82962; 83036; 83718; 83721; 84443; 84478; 84484; 85025; 85027; 85610; 85730; 93005; 93010; 93306-TC; 93880-TC; 96372; 96374; 97116-GP; 97161-GP; 99283-25; G0378; J7030

== ENCOUNTER 2022-04-16 09:33 | Emergency (ER) | payer OTHER ==
[2022-04-16 09:35] VITALS: BP 121/70; PULSE 83; RESP 18; TEMP 98.2; BMI 26.5
[2022-04-16] MEDS ORDERED: ALBUTEROL SO4 HFA INHALER IH ONE ×2 (10:51→11:23)
[2022-04-16] MEDS ORDERED: IBUPROFEN 600 MG TABLET (FP) PO ONE ×2 (10:52→11:23)
[2022-04-16 14:17] LABS: BASO % 0.3 % (0-2.0); EOS % 0.8 % (0-4.5); HEMATOCRIT 41.4 % (32.4-45.2); HEMOGLOBIN 13.8 GM/dL (10.7-15.3); LYMPH % 23.9 % (8-40); MCH 29.6 pg (25.7-33.7); MCHC 33.2 g/dl (32.0-36.0); MONO % 8.6 % (3.8-10.2); NEUT % 66.4 % (42.8-82.8); PLATELET COUNT 193 10^3/uL (134-434); RBC 4.65 M/mm3 (3.60-5.2); RDW 14.1 % (11.6-15.6); WHITE BLOOD COUNT 5.5 K/mm3 (4.0-10.0)
[2022-04-16 14:41] LABS: ALBUMIN 3.6 g/dl (3.4-5.0); BLOOD UREA NITROGEN 16.2 mg/dL (7-18); CALCIUM 8.8 mg/dL (8.5-10.1); MAGNESIUM 2.2 mg/dL (1.8-2.4)
[2022-04-16 14:45] LABS: BILIRUBIN,TOTAL 0.8 mg/dL (0.2-1); CREATININE 0.7 mg/dL (0.55-1.3)
[2022-04-16 14:47] LABS: TOT PROT 7.5 g/dl (6.4-8.2)
== END 2022-04-16 15:35 | disposition home or self-care (01) ==
LOC: JER 09:33
PROC: 3E0F7GC Introduction of Other Therapeutic Substance into Respiratory Tract, Via Natural or Artificial Opening (ICD-10-PCS; principal; 2022-04-16)
DX: J09.X2 Influenza due to identified novel influenza A virus with other respiratory manifestations (principal); R94.5 Abnormal results of liver function studies
CPT/HCPCS: 0241U-QW; 36415; 71045-TC-FY; 80053; 83735; 84484; 85025; 93005; 93010; 99285-25